=== PATIENT | male | born 1955 | race Caucasian/White ===

== ENCOUNTER 2019-08-24 08:52 | Inpatient (IN) ==
--- NOTE | 2019-07-27 15:54 | PAT Medication Instructions ---
Medication Instructions Date of Service July 27, 2019 Home Medications aspirin [Aspirin Low Dose] 81 mg PO DAILY finasteride 5 mg PO DAILY olmesartan 20 mg PO DAILY tamsulosin 0.4 mg PO DAILY DO NOT take the morning of surgery olmesartan 20 mg PO DAILY Take morning of surgery If scheduled, with a small sip of water, OTHERWISE NOTHING TO EAT OR DRINK AFTER MIDNIGHT: aspirin [Aspirin Low Dose] 81 mg PO DAILY finasteride 5 mg PO DAILY tamsulosin 0.4 mg PO DAILY Other Notes If you have any questions please call us at [phone] or [phone] or [phone] or [phone]
--- NOTE | 2019-07-29 08:32 | Anesthesiology Consultation ---
Date of Service July 29, 2019 Assessment & Plan (1) Encounter for pre-operative examination: Chart Review Chart Review: Acceptable Risk for Surgery and Patient seen in Pre Admission Testing Teaching & Discussion Instructed NPO after midnight before surgery, except medications with 15 cc of water. Medication instructions provided according to the PAT guidelines. History Surgery Operation Date: 08/24/19 09:05 Proposed Procedures p Left Total Knee Arthroplasty - Heath John MD Height/Weight Height: 5 ft 5 in Weight: 90.4 kg Allergies Allergy/AdvReac Type Severity Reaction Status Date / Time No Known Allergies Allergy Verified 07/26/19 08:52 Medications Home Medications Medication Instructions Recorded Confirmed Last Taken aspirin [Aspirin Low Dose] 81 mg PO DAILY 07/26/19 07/26/19 Unknown finasteride 5 mg PO DAILY 07/26/19 07/26/19 Unknown olmesartan 20 mg PO DAILY 07/26/19 07/26/19 Unknown tamsulosin 0.4 mg PO DAILY 07/26/19 07/26/19 Unknown Past Medical History Medical History BPH (benign prostatic hyperplasia) DJD (degenerative joint disease) of knee Hypertension Past Family History Family History Father FHx: heart disease Mother FHx: lung cancer Past Surgical History Surgical History History of open reduction and internal fixation (ORIF) procedure LEFT KNEE History of right hip replacement Past Anesthesia History No Hx of Anesthesia Complications and No Family Hx of Anesthesia Complications History of PONV No Hx of PONV and No Hx of Motion Sickness Social History Smoking Status: Current some day smoker tobacco type: cigars Smoking cigarettes per day: OFF AND ON Do You Dip or Chew Tobacco: No Hx Alcohol Use: Yes alcohol intake frequency: holidays/special occasions only (VERY RARE) Hx Substance Use: No Review of Systems Pt denies any recent chest pain, shortness of breath, palpitations, fever or URI. +occasional dry cough Physical Exam Vital Signs BP: 162/96 (Pt reports white coat HTN, takes BP at home and is WNL, HTN managed by PCP) P: 69bpm SPO2: 97% RA T: 97.9 F R: 12 ENMT Mouth: + chipped teeth (several); no dental restorations and no loose teeth Thyromental Distance: < 3.5 Finger Breadths (3) Mallampati Class: II Neck normal visual inspection; neck extension not limited Respiratory normal respiratory effort Auscultation: lungs clear to auscultation bilaterally Cardiovascular Rate/Rhythm: regular rate and regular rhythm Heart Sounds: no murmur Vessels: no carotid bruit Extremities: no edema Testing Laboratory Results 07/29/19 08:44 07/29/19 08:44 PT 10.2 Seconds (9.0-12.0) 07/29/19 08:44 INR 1.0 (0.9-1.1) 07/29/19 08:44 APTT 26.9 Seconds (21.0-31.0) 07/29/19 08:44 Blood Type O Positive 07/29/19 08:44 Antibody Screen NEGATIVE 07/29/19 08:44 Electrocardiogram Date: 07/29/19 Findings: + SB @ (54) Chest X-Ray Date: 07/29/19 IMPRESSION: Borderline enlargement of the cardiac silhouette. Otherwise, no acute process within the chest.
--- NOTE | 2019-07-29 09:02 | XRay Report ---
XR chest Pre-admission PA/Lat HISTORY: Preop. COMPARISON: Chest 10/04/2012. FINDINGS: The cardiac silhouette is borderline enlarged. No pleural effusions. No pneumothorax. The l ungs are clear. IMPRESSION: Borderline enlargement of the cardiac silhouette. Otherwise, no acute process within the chest. Electronically signed by: Sathya Islas M.D. 07/29/2019 9:01 AM
[2019-07-29 10:37] LABS: Basophils # (auto) 0.04 K/uL (0-0.2); Basophils % (auto) 0.5 %; Eosinophils # (auto) 0.37 K/uL (0-0.5); Eosinophils % (auto) 4.4 %; Hematocrit (blood only) 38.5 % (42-52); Hemoglobin 13.3 g/dL (14.0-18.0); Immature Granulocytes # (auto) 0.06 K/uL (0.00-0.02); Immature Granulocytes % (auto) 0.7 %; Lymphocytes # (auto) 2.63 K/uL (1.2-3.4); Lymphocytes % (auto) 31.4 %; Mean Corpuscular Hemoglobin 29.5 pg (25-34); Mean Corpuscular Hgb Conc 34.5 g/dL (32-36); Mean Corpuscular Volume 85.4 fL (80-100); Mean Platelet Volume 9.4 fL (7.4-10.4); Monocytes # (auto) 0.63 K/uL (0.11-0.59); Monocytes % (auto) 7.5 %; Neutrophils # (auto) 4.64 K/uL (1.4-6.5); Neutrophils % (auto) 55.5 %; Platelet Count 181 K/uL (130-400); RDW Coefficient of Variation 13.2 % (11.5-14.5); RDW Standard Deviation 40.8 fL (36.4-46.3); Red Blood Count 4.51 M/uL (4.7-6.1); White Blood Count 8.37 K/uL (4.8-10.8)
[2019-07-29 10:44] LABS: BUN Creatinine Ratio 20.7 (10-20); Blood Urea Nitrogen 20 mg/dl (7-18); C Reactive Protein < 0.29 mg/dl (0-0.29); Calcium 9.3 mg/dl (8.5-10.1); Carbon Dioxide 26 mmol/L (21-32); Chloride 111 mmol/L (98-107); Creatinine Clr Calc Pharmacy 79.9 ml/min; Est GFR (African American) 94.2; Est GFR (Non-African American) 81.3; Glucose 93 mg/dl (70-99); Potassium 4.9 mmol/L (3.5-5.1); Sodium 140 mmol/L (136-145)
[2019-07-29 10:46] LABS: Partial Thromboplastin Time 26.9 Seconds (21.0-31.0); Prothrombin Time 10.2 Seconds (9.0-12.0)
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
[~2019-08-24 08:52] MED LIST: ACETAMINOPHEN 500 MG TAB PO SCH; BUPIVACAINE 0.5 % 5 MG/1 ML PF 10ML VIAL ONE; BUPIVACAINE LIPOSOME/PF 266 MG, BUPIVACAINE/EPINEPHRINE 50 ML, SODIUM CHLORIDE 0.9% 30 ... INFIL SCH; BUPIVACAINE/EPINEPHRINE 0.25% 1:200,000 30 ML VIAL ONE; CEFAZOLIN 2000MG 2,000 MG/15 ML SYR IV SCH; FAMOTIDINE 20 MG TAB PO SCH; GABAPENTIN 600 MG DOSE PO SCH; LR 500ML BOLUS, THEN 15ML/HR IV SCH; LR 60ML/HR IV SCH; METOCLOPRAMIDE HCL 10 MG TABLET PO SCH; SCOPOLAMINE 1.5 MG TDSY TD SCH; TRANEXAMIC ACID 1,000 MG **IV Intra-op IV SCH
[2019-08-24] MEDS ORDERED: ONDANSETRON INJ 2 MG/ML 2 ML VIAL ONE (09:47)
[2019-08-24] MEDS ORDERED: LIDOCAINE HCL 2% 2 ML VIAL/AMP(20MG/ML) INFIL ONE (09:47)
[2019-08-24] MEDS ORDERED: MIDAZOLAM HCL 1 MG/ML 2ML VIAL ONE (09:47)
[2019-08-24] MEDS ORDERED: DEXAMETHASONE SOD INJ 4 MG/ML VIAL ONE (09:47)
[2019-08-24] MEDS ORDERED: PROPOFOL IV EMULSION 10 MG/ML 20 ML VIAL IV ONE ×4 (09:47→13:48)
--- NOTE | 2019-08-24 11:23 | History & Physical Bridge Note ---
Date of Service August 24, 2019 History & Physical Bridge Note I have examined the patient, reviewed the History & Physical and in the interval since the performance of the History & Physical I have noted the following changes of clinical significance: no changes noted
[2019-08-24] MEDS ORDERED: ePHEDrine sulfate 50 MG/ML AMP IV PRN (11:36)
[2019-08-24] MEDS ORDERED: ONDANSETRON INJ 2 MG/ML 2 ML VIAL IV PRN ×2 (11:36→15:51)
[2019-08-24] MEDS ORDERED: HYDROmorphone INJ 2 MG/ML SYR/VIAL IV PRN (11:36)
[2019-08-24] MEDS ORDERED: ATROPINE SULFATE 0.1 MG/ML 10ML SYR IV PRN (11:36)
[2019-08-24] MEDS ORDERED: fentaNYL citrate 100 MCG/2 ML VIAL IV PRN (11:36)
[2019-08-24] MEDS ORDERED: BACITRACIN INJ 50,000 UNIT VIAL ONE (12:09)
[2019-08-24] MEDS ORDERED: SODIUM CHLORIDE 0.9% PF 50 ML VIAL ONE (12:09)
[2019-08-24] MEDS ORDERED: BUPIVACAINE/EPINEPHRINE 0.25% 1:200,000 30 ML VIAL ONE (12:09)
[2019-08-24] MEDS ORDERED: BUPIVACAINE LIPOSOME 1.3% 266 MG/20 ML VIAL ONE (12:09)
[2019-08-24] MEDS ORDERED: VANCOMYCIN HCL 1000MG/20ML VIAL ONE (12:50)
--- NOTE | 2019-08-24 14:12 | Post Operative Brief Note ---
PG Immediate Post Op with CF Date of Surgery August 24, 2019 Pre & Post Diagnosis Operation Date: 08/24/19 13:50 Pre-Op Diagnosis: Left Knee Degenerative Joint Disease Post-Op Diagnosis: Left Knee Degenerative Joint Disease I identified the patient and participated in the time-out.: Yes Procedure Operation Date: 08/24/19 13:50 Actual Procedures p Left Total Knee Arthroplasty(Left) - Heath John MD Surgeon Heath John MD Senior Software Engineer [employer] Ian, PAC Estimated Blood Loss 50 Findings Consistent with Post-Op Diagnosis Fluids 1500 cc Specimens Specimen Description: Permanent A: Left Knee Bone and Tissue Drains Schmitz Catheter Anesthesia Type Spinal MAC Complications none Disposition Accompanied Patient To Recovery: No Disposition: Recovery Room
--- NOTE | 2019-08-24 14:43 | Anesthesiology Progress Note ---
Date of Service August 24, 2019 Anesthesia Post Procedure Vital Signs Vital Signs: Temp Pulse Pulse Resp BP Pulse Ox 08/24/19 14:35 75 18 120/74 94 08/24/19 14:25 80 21 123/64 100 08/24/19 14:18 98.1 F 78 14 109/70 95 08/24/19 09:30 97.9 F 59 L 18 153/89 H 96 Transfer of Care Handoff Completed per policy Notes Mental Status: alert / awake / arousable and participated in evaluation Patient Amnestic to Procedure: Yes Nausea / Vomiting: adequately controlled Pain: adequately controlled Airway Patency, RR, SpO2: stable & adequate BP & HR: stable & adequate Hydration State: stable & adequate Neuraxial Anesthesia: was administered and sensory block is resolving Anesthetic Complications: no major complications apparent and Pt Satisfied with anesthetic care
--- NOTE | 2019-08-24 14:52 | XRay Report ---
XR knee LT 1 or 2V routine CLINICAL HISTORY: Surgical Post Op postoperative evaluation COMPARISON: None. DISCUSSION: Anatomic alignment posttotal left knee arthroplasty. Good contact between prosthetic and underlying bone. Expected soft tissue postoperative change IMPRESSION: Anatomic alignment posttotal left knee arthroplasty. ACT 112: Negative or not required by law. The above report was generated using voice recognition software. It may contain grammatical, syntax or spelling errors. Electronically signed by: Fito Johnston M.D. 08/24/2019 2:50 PM
[2019-08-24] MEDS ORDERED: OXYCODONE HCL IR 5 MG TAB (IMMEDIATE RELEASE) PO PRN (15:51)
[2019-08-24] MEDS ORDERED: HYDROmorphone INJ 0.5 MG/0.5 ML SYR IV PRN (15:51)
[2019-08-24] MEDS ORDERED: MAGNESIUM HYDROXIDE SUSP 30 ML UDC PO PRN (15:51)
[2019-08-24] MEDS ORDERED: ALUMINUM/MAGNESIUM SUSP 30 ML UDC PO PRN (15:51)
[2019-08-24] MEDS ORDERED: METOCLOPRAMIDE HCL INJ 5 MG/ML 2 ML VIAL IV PRN (15:51)
[2019-08-24] MEDS ORDERED: bisacodyL 10 MG SUPP PR PRN (15:51)
[2019-08-24] MEDS ORDERED: NALOXONE HCL 0.4 MG/1 ML VIAL/CARP IV PRN (15:51)
[2019-08-24] MEDS: SODIUM CHLORIDE 0.9% 1000ML 1,000 ML IV SCH (18:01)
[2019-08-24] MEDS: ASCORBIC ACID 500 MG TAB PO SCH (18:04)
[2019-08-24] MEDS: KETOROLAC 30 MG/ML VIAL IV SCH (18:04)
[2019-08-24] MEDS: CHECK SCOPOLAMINE PATCH PLACEMENT SCH (18:04)
[2019-08-24] MEDS: FERROUS GLUCONATE 324 MG TAB PO SCH (18:04)
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
[2019-08-24] MEDS ORDERED: TRANEXAMIC ACID / 0.7% NACL 1,000 MG/100 ML BAG IV SCH (20:14)
[2019-08-24] MEDS: CEFAZOLIN 2000MG 2,000 MG/15 ML SYR IV SCH (20:34)
[2019-08-24] MEDS ORDERED: SENNA 8.6 MG TAB PO SCH (21:00)
[2019-08-24] MEDS: ASPIRIN 81 MG ECTAB PO SCH (21:29)
[2019-08-24] MEDS: DOCUSATE SODIUM 100 MG CAP PO SCH (21:29)
[2019-08-24] MEDS: ACETAMINOPHEN 500 MG TAB PO SCH (21:29)
[2019-08-24] MEDS: TAPENTADOL HCL ER 50 MG TABCR PO SCH (21:29)
[2019-08-25] MEDS: KETOROLAC 30 MG/ML VIAL IV SCH ×2 (00:03→05:31)
[2019-08-25] MEDS: SODIUM CHLORIDE 0.9% 1000ML 1,000 ML IV SCH (00:03)
[2019-08-25] MEDS: CHECK SCOPOLAMINE PATCH PLACEMENT SCH (00:03)
[2019-08-25] MEDS: CEFAZOLIN 2000MG 2,000 MG/15 ML SYR IV SCH (03:44)
[2019-08-25] MEDS: ACETAMINOPHEN 500 MG TAB PO SCH (05:31)
[2019-08-25 06:21] LABS: Hemoglobin 11.8 g/dL (14.0-18.0); Mean Corpuscular Hemoglobin 29.7 pg (25-34); Mean Corpuscular Hgb Conc 35.8 g/dL (32-36); Mean Corpuscular Volume 83.1 fL (80-100); Mean Platelet Volume 9.2 fL (7.4-10.4); Platelet Count 184 K/uL (130-400); RDW Coefficient of Variation 13.1 % (11.5-14.5); RDW Standard Deviation 39.6 fL (36.4-46.3); Red Blood Count 3.97 M/uL (4.7-6.1)
[2019-08-25 06:55] LABS: BUN Creatinine Ratio 17.8 (10-20); Creatinine Clr Calc Pharmacy 66.3 ml/min; Est GFR (African American) 69.7; Est GFR (Non-African American) 60.2; Potassium 4.7 mmol/L (3.5-5.1)
--- NOTE | 2019-08-25 07:18 | Orthopedic Progress Note ---
Date of Service August 25, 2019 Assessment & Plan (1) S/P total knee replacement: discharge planning: d/c home later today with home health if he does well with PT. pain is controlled. dvt prophylaxis: teds, scds, aspirin PT/OT wbat. He was seen and examined by Dr. John today. Subjective POD #1 from Left TKA. Doing well. Pain controlled. No new complaints. Physical Exam Physical Exam: alert and oriented. NAD. Dressing clean, dry, intact to left leg. NVI. Able to do a good straight leg raise and flex to about 70 degrees. Results & Data Vital Signs (Past 12 Hours) Vital Signs Temp Pulse Resp BP Pulse Ox 08/25/19 07:03 36.3 C L 56 L 16 132/82 98 08/25/19 03:34 36.3 C L 58 L 18 122/70 97 08/24/19 23:43 36.4 C L 57 L 18 122/69 96 08/24/19 19:23 36.6 C 57 L 18 122/68 96 PG Care Time/CCT Total # of Minutes Spent Total Time Spent with Patient: Total time spent is greater than 50% in coordination of care (as documented) at patient's floor/unit and/or counseling patient: Coding Level of Care Code None Diagnoses S/P total knee replacement Z96.659
[2019-08-25] MEDS: TAPENTADOL HCL ER 50 MG TABCR PO SCH (08:23)
[2019-08-25] MEDS: ASCORBIC ACID 500 MG TAB PO SCH (08:23)
[2019-08-25] MEDS: FERROUS GLUCONATE 324 MG TAB PO SCH (08:23)
[2019-08-25] MEDS: ASPIRIN 81 MG ECTAB PO SCH (08:24)
[2019-08-25] MEDS: DOCUSATE SODIUM 100 MG CAP PO SCH (08:25)
[2019-08-25] MEDS ORDERED: FINASTERIDE 5 MG TAB PO SCH (09:00)
[2019-08-25] MEDS ORDERED: TAMSULOSIN HCL 0.4 MG CAP PO SCH (09:00)
[2019-08-25] MEDS ORDERED: OLMESARTAN MEDOXOMIL 20 MG TAB PO SCH (09:00)
[2019-08-25] MEDS ORDERED: MULTIVITAMIN TAB PO SCH (09:00)
--- NOTE | 2019-08-26 16:30 | Discharge Summary ---
ADMITTING PHYSICIAN AND SURGEON: Dr. Heath John. ADMITTING DIAGNOSIS: Left knee degenerative joint disease. SURGERY PERFORMED: Left total knee arthroplasty. SECONDARY DIAGNOSES: Hypertension, benign prostatic hypertrophy. CONSULTS: None obtained. HISTORY AND PHYSICAL EXAMINATION: Well documented in the patient's chart. HOSPITAL COURSE: The patient was admitted on 08/24/2019 underwent total knee arthroplasty, tolerated the procedure well. There were no complications. He was transferred to the PACU postoperatively and later to the orthopedic floor for further care. He was given Ancef for antibiotic prophylaxis, GRZEGORZ stockings, SCDs and aspirin for DVT prophylaxis. Hemoglobin, hematocrit and vital signs were monitored during his hospital stay and remained stable, did not require any blood transfusions. There were no complications. On postoperative day 1, he was tolerating a regular diet, pain was controlled with oral pain medicine. He was participating in physical therapy. Postop day 1, he was discharged home, set up with home health services. He was given printed discharge instructions including new prescriptions for extra strength Tylenol, aspirin and oxycodone. Continue his home medicines. Continue physical therapy, weightbearing as tolerated, GRZEGORZ stockings. Follow up approximately 2 weeks postop or sooner if there are any problems or concerns.
== END 2019-08-25 11:42 | disposition home health service (06) | DRG 470 ==
LOC: ASU 08:52 → 3E 14:16